=== PATIENT | female | born 2005 | race Caucasian/White ===

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

== ENCOUNTER 2025-05-30 10:50 | Outpatient (CLI) | payer BC, SELFPAY ==
[2025-06-10 11:15] LABS: Pap Test Reviewed by Path Done; Pap Test Screened Manually Done
== END 2025-05-30 10:51 | disposition home or self-care (01) ==
PROVIDERS: PCP Family Medicine; Visit Provider Registered Nurse
DX: Z12.4 Encounter for screening for malignant neoplasm of cervix (principal); Z13.9 Encounter for screening, unspecified
CPT/HCPCS: 80061; 87624; 87625; 88141; 88142; 88175